=== PATIENT | male | born 1985 | race Two or more races ===

== ENCOUNTER 2017-04-12 16:49 | Emergency (ER) | payer OTHER ==
--- NOTE | 2017-04-12 19:13 | ER Document Report ---
ED Wound - General Chief Complaint: Laceration Stated Complaint: FINGER LACERATION Time Seen by Provider: 04/12/17 18:22 Mode of Arrival: Ambulatory Information source: Patient Notes: Patient is a 31-year-old male who presents to the ER today for laceration to his left index finger that occurred 6 days ago. Patient states that he slipped while using a knife while opening something. Patient states that he has been using Steri-Strips at home and try to change the dressing today, realizing that it did not look like it was healing. He denies any redness, drainage from the wound, fevers or chills. He is up-to-date on his tetanus. TRAVEL OUTSIDE OF THE [place] IN LAST 30 DAYS: No - Related Data Allergies/Adverse Reactions: No Known Allergies Allergy (Verified 04/12/17 16:50) Past Medical History - General Information source: Patient - Social History Smoking Status: Never Smoker Chew tobacco use (# tins/day): No Frequency of alcohol use: None Drug Abuse: None Family History: Reviewed & Not Pertinent Patient has suicidal ideation: No Patient has homicidal ideation: No Renal/ Medical History: Denies: Hx Peritoneal Dialysis Review of Systems - Review of Systems Constitutional: No symptoms reported EENT: No symptoms reported Cardiovascular: No symptoms reported Respiratory: No symptoms reported Gastrointestinal: No symptoms reported Genitourinary: No symptoms reported Male Genitourinary: No symptoms reported Musculoskeletal: No symptoms reported Skin: See HPI Hematologic/Lymphatic: No symptoms reported Neurological/Psychological: No symptoms reported Physical Exam - Vital signs Vitals: Temp Pulse Resp BP Pulse Ox 98.4 F 58 L 16 139/69 H 95 04/12/17 17:18 04/12/17 17:18 04/12/17 17:18 04/12/17 17:18 04/12/17 17:18 - Notes Notes: PHYSICAL EXAMINATION: GENERAL: Well-appearing and in no acute distress. HEAD: Atraumatic, normocephalic. EYES: Pupils equal round and reactive to light, extraocular movements intact, sclera anicteric, conjunctiva are normal. NECK: Normal range of motion, supple without lymphadenopathy LUNGS: CTAB and equal. No wheezes rales or rhonchi. HEART: Regular rate and rhythm without murmurs EXTREMITIES: Normal range of motion, no pitting edema. No cyanosis. NEUROLOGICAL: Cranial nerves grossly intact. Normal sensory/motor exams. PSYCH: Normal mood, normal affect. SKIN: Warm, Dry, normal turgor, less than 1cm laceration to tip of left 2nd digit, no bleeding, poor approximation, not able to be manipulated, through nail , no erythema or drainage Course - Re-evaluation Re-evalutation: 04/12/17 19:24 Patient cut his finger 6 days ago, and cannot suture it at this time, we will bandage it with Steri-Strips on it to try to approximate, however I believe the wound is Raffi started healing. I will give him Dr. Saldana, plastic surgeons information to follow-up with. I will provide him an antibiotic as he came here concerned today for infection, And as the hand has a higher risk of getting infected with lacerations. - Vital Signs Vital signs: Temp Pulse Resp BP Pulse Ox 98.4 F 58 L 16 139/69 H 95 04/12/17 17:18 04/12/17 17:18 04/12/17 17:18 04/12/17 17:18 04/12/17 17:18 Discharge - Discharge Clinical Impression: Laceration of left index finger with damage to nail Qualifiers: Encounter type: initial encounter Foreign body presence: without foreign body Qualified Code(s): S61.311A - Laceration without foreign body of left index finger with damage to nail, initial encounter Condition: Stable Disposition: HOME, SELF-CARE Instructions: Prophylactic Antibiotic ([facility]) Additional Instructions: Return immediately for any new or worsening symptoms. Follow up with plastic surgeon, call tomorrow to make followup appointment. Prescriptions: Cephalexin Monohydrate [Keflex 500 mg Capsule] 500 mg PO BID 5 Days capsule Referrals: ALEE SALDANA MD [ACTIVE STAFF] - Follow up as needed
[2017-04-12 19:28] VITALS: BP 137/68
== END 2017-04-12 19:30 | disposition home or self-care (01) ==
LOC: ER 16:49
DX: S61.311A Laceration without foreign body of left index finger with damage to nail, initial encounter (principal); W26.0XXA Contact with knife, initial encounter
CPT/HCPCS: 99282